=== PATIENT | male | born 1940 | race Caucasian/White ===

== ENCOUNTER 2022-01-24 10:19 | Emergency (ER) | payer MEDICARE, OTHER, SELFPAY ==
[2022-01-24] VITALS (11 sets, daily range): BP systolic 91–127; BP diastolic 53–76; PULSE 69–94; RESP 11–20; TEMP 37.6; O2SAT 91–100; BMI 28.8
--- NOTE | 2022-01-24 11:00 | ED_ITS ---
HPI - Abdominal Pain General: Chief Complaint: Abdominal Pain Stated Complaint: N/V/D Abd Pains with weakness Time Seen by Provider: 01/24/22 10:59 History of Present Illness: Mr. Dang is an 81-year-old gentleman with significant past medical history of melanoma status post completion of therapy currently stable and chronic steroid use who presents to the emergency department due to abdominal pain with diarrhea, nausea, vomiting. Symptom onset was subacute approximately 1 week ago without known specific provoking factor. Patient has had daily episodes of multiple watery bowel movements. Additionally he has noted multiple episodes of watery emesis. No blood reported in either stool or vomit. Symptoms wax and wane to mildly though occur daily and abdominal pain has been constant. Overall the course of symptoms has been worsening has been the worst today. Intensity symptoms is moderate. Of note the patient did run out of his steroids which he typically takes hydrocortisone 20 mg in the morning and 10 mg in the evening approximately 1 week ago. He has been on this for a number of years. He denies lightheadedness or syncope. No other specific changes in health, exacerbating, or alleviating factors identified. Onset (ago): day(s) Pain Consistency: constant Location: Diffuse Severity: moderate Quality: cramping and aching Exacerbating factors: nothing Relieving factors: nothing Associated Symptoms: Reports diarrhea, nausea, poor appetite and vomiting Review of Systems General: Reports: 10 or more systems reviewed and unremarkable except in HPI and below GI: Reports: nausea, vomiting and diarrhea [facility] ED PFSH: Medical History Chronic steroid use History of melanoma Surgical History History of abdominal surgery History of appendectomy Family History Father CAD (coronary artery disease) Social History Smoking and tobacco status: never smoked Physical Exam Const: COMMON NORMALS: alert GENERAL APPEARANCE: cooperative, well developed and ill appearing (Mildly) HENMT: COMMON NORMALS: normocephalic and atraumatic HEAD & SCALP: normoc ephalic and atraumatic Eye: COMMON NORMALS: conjunctivae normal CONJUNCTIVA: Yes conjunctivae normal SCLERA: sclerae normal Neck/C-Spine: COMMON NORMALS: supple GENERAL: Yes trachea midline Resp: COMMON NORMALS: normal respiratory effort and clear to auscultation bilaterally EFFORT & INSPECTION: Yes able to speak in complete sentences AUSCULTATION: clear to auscultation bilaterally Cardio: COMMON NORMALS: regular rate and regular rhythm RATE: regular rate RHYTHM: regular rhythm GI: COMMON NORMALS: Soft to palpation PALPATION: Yes Soft to palpation, Yes Tenderness to palpation present (GI) (Mild generalized), No Guarding due to palpation present (GI) and No Rigid due to palpation PERCUSSION: normal to percussion Extremity: GENERAL: Yes normal exam except as noted and No edema Neuro: COMMON NORMALS: moves all extremities SENSORIUM/ORIENTATION: Yes alert and No Orientation impaired Psych: COMMON NORMALS: mental status grossly normal and Normal thought process present THOUGHT PROCESS: Normal thought process present Course ED course: - Patient was seen and evaluated by me at bedside - Patient placed on cardiac monitors, IV access obtained - Initial evaluation notable for exam as above. - Labs personally interpreted by me. EKG showing sinus rhythm with no STEMI - Fluids, analgesia, and antiemetics given - Labs notable for no leukocytosis, normal hemoglobin. Metabolic panel with evidence of dehydration. - Imaging notable for no acute abnormality identified on CT imaging of abdomen and pelvis - Upon serial reexamination after treatment the patient was improved. Hyd rocortisone IV bolus given. - Based on patient history, evaluation, and testing as interpreted the most likely cause of the patient's condition is unclear, perhaps related to adrenal insufficiency given chronic steroid use and being out of prescription however blood pressure is adequate and there is not significant evidence of adrenal crisis - The results of ED evaluation were discussed with the patient including prescriptions and/or symptomatic cares (if applicable) including appropriate and responsible use, followup plan, and return precautions. The patient verbalized understanding and felt safe for discharge. - Patient discharged in satisfactory condition. Note: Click bubbles or prepopulated hurtado in note writing are used for assistance with data collection and billing and are inherently more limited than narrative and other text portions of this note. Please use narrative for additional clinical history and defer to narrative/free test for any case of contradictory information. If information appears in only free text or click bubble it should be considered present or absent as reported. Please contact note ticket writer for clarifications of clinical information or contradictory information. MDM is a brief summary, contradictory or erroneous seeming information should be clarified and full note should be reviewed. Vital Signs: Vital signs: Vital Signs Temperature 99.7 F H 01/24/22 10:53 Pulse Rate 69 01/24/22 15:00 Respiratory Rate 20 H 01/24/22 15:03 Blood Pressure 123/67 01/24/22 15:00 Pulse Oximetry 92 01/24/22 15:00 MDM - Abdominal Pain Medical Decision Making 81-year-old gentleman presenting with nausea and vomiting as well as generalized symptoms correlating with being out of his prescription for chronic steroids. Dehydration noted on laboratory studies. No acute abnormality on CT scan. Patient improved with symptom treatment and bolused with hydrocortisone IV. Satisfactory for outpatient management with refill prescription and strict return precautions. Medical Records I reviewed the patient's medical records. Lab Data I reviewed the patient's lab results. : 01/24/22 11:16 01/24/22 11:16 Labs/Radiology: Radiology Impressions Abdomen/Pelvis CT 01/24/22 12:06 IMPRESSION: No acute abnormality. Laboratory Results WBC 5.7 10^3/uL (4.0-10.0) 01/24/22 11:16 RBC 4.56 10^6/uL (4.1-5.3) 01/24/22 11:16 Hgb 14.7 g/dL (11.7-16.6) 01/24/22 11:16 Hct 41.6 % (42.0-52.0) L 01/24/22 11:16 MCV 91.2 fl (80-94) 01/24/22 11:16 MCH 32.2 pg (28.0-34.0) 01/24/22 11:16 MCHC 35.3 g/dL (30.0-36.0) 01/24/22 11:16 RDW 12.6 % (12.1-15.1) 01/24/22 11:16 Plt Count 229 10^3/cmm (130-400) 01/24/22 11:16 MPV 9.4 fL (7.4-10.4) 01/24/22 11:16 Neut % (Auto) 65.4 % 01/24/22 11:16 Lymph % (Auto) 17.2 % 01/24/22 11:16 [place] % (Auto) 15.0 % 01/24/22 11:16 Eos % (Auto) 1.6 % 01/24/22 11:16 Baso % (Auto) 0.3 % 01/24/22 11:16 Neut # (Auto) 3.75 10^3/uL (1.8-7.7) 01/24/22 11:16 Lymph # (Auto) 1.0 10^3/uL (0.8-4.8) 01/24/22 11:16 [place] # (Auto) 0.9 10^3/uL (0.2-0.9) 01/24/22 11:16 Eos # (Auto) 0.1 10^3/uL (0.0-0.8) 01/24/22 11:16 Baso # (Auto) 0.0 10^3/uL (0.0-0.1) 01/24/22 11:16 Nucleated RBC % (auto) 0 % 01/24/22 11:16 Nucleated RBCs # 0.0 /100WBC 01/24/22 11:16 Sodium 129 mmol/L (136-145) L 01/24/22 11:16 Potassium 4.3 mmol/L (3.5-5.1) 01/24/22 11:16 Chloride 92 mmol/L (98-107) L 01/24/22 11:16 Carbon Dioxide 24 mmol/L (22-29) 01/24/22 11:16 Anion Gap 17.3 (5-19) 01/24/22 11:16 BUN 8 mg/dL (8-23) 01/24/22 11:16 Creatinine 0.9 mg/dL (0.7-1.2) 01/24/22 11:16 GFR Calculation Not Reportable 01/24/22 11:16 Glucose 113 mg/dL (65-115) 01/24/22 11:16 Calculated Osmolality 267 mOsm/kg (285-295) L 01/24/22 11:16 Lactate 1.3 mmol/L (0.5-2.2) 01/24/22 11:16 Calcium 9.2 mg/dL (8.5-10.5) 01/24/22 11:16 Magnesium 1.8 mg/dL (1.7-2.3) 01/24/22 11:16 Total Bilirubin 0.9 mg/dL (0.15-1.2) 01/24/22 11:16 AST 19 U/L (0-40) 01/24/22 11:16 ALT 13 U/L (0-41) 01/24/22 11:16 Alkaline Phosphatase 73 IU/L (40-130) 01/24/22 11:16 Total Protein 7.3 g/dL (6.6-8.7) 01/24/22 11:16 Albumin 4.2 g/dL (3.5-5.2) 01/24/22 11:16 Globulin 3.1 g/dL (1.3-4.6) 01/24/22 11:16 Lipase 50 U/L (13-60) 01/24/22 11:16 Urine Color Yellow (Yellow) 01/24/22 11:10 Urine Appearance Clear (CLEAR) 01/24/22 11:10 Urine pH 6 (5-7) 01/24/22 11:10 Ur Specific [place] 1.020 (1.005-1.030) 01/24/22 11:10 Urine Protein Neg (Negative) 01/24/22 11:10 Urine Glucose (UA) Norm (Normal) 01/24/22 11:10 Urine Ketones 1+ (Negative) H 01/24/22 11:10 Urine Blood Trace (Negative) H 01/24/22 11:10 Urine Nitrate Negative (Negative) 01/24/22 11:10 Urine Bilirubin 1+ (Negative) H 01/24/22 11:10 Urine Urobilinogen Norm mg/dL (Negative) 01/24/22 11:10 Ur Leukocyte Esterase Negative (Negative) 01/24/22 11:10 Urine RBC 0-4 /hpf (0-2) H 01/24/22 11:10 Urine WBC None /hpf (0-5) 01/24/22 11:10 Ur Squamous Epith Cells None /hpf (0-5) 01/24/22 11:10 Amorphous Sediment Not Reportable 01/24/22 11:10 Urine Bacteria None /hpf (NONE) 01/24/22 11:10 Urine Mucus Trace /hpf 01/24/22 11:10 Discharge Plan Discharge Patient Disposition: Home Clinical Impression: Abdominal pain, Nausea vomiting and diarrhea Condition: Stable Prescriptions: New hydrocortisone 20 mg tablet See Rx Instructions .ROUTE .COMPLEX Qty: 60 0RF Rx Instructions: Take as previously prescribed ondansetron 4 mg tablet,disintegrating 4 mg PO Q8H PRN (Reason: nausea and vomiting) Qty: 15 0RF No Action metoprolol succinate 50 mg tablet extended release 24 hr 50 mg PO DAILY 0RF amlodipine 10 mg tablet 10 mg PO DAILY 0RF pantoprazole 40 mg tablet,delayed release (DR/EC) 40 mg PO DAILY 0RF hydrocortisone 20 mg tablet See Rx Instructions .ROUTE .COMPLEX 0RF Rx Instructions: 20 mg orally in the morning / 10 mg orally in the evening lisinopril 40 mg tablet 40 mg PO DAILY 0RF PreserVision AREDS-2 250-90-40-1 mg capsule 1 tab PO BID 0RF Discharge Orders: Discharge ED (Routine); Ordered 01/24/22 Ordered By: Neel Mcneill Discharge Diet: Usual diet Discharge Activity: Increase activity as tolerated Patient Instructions: Acute Nausea and Vomiting (ED), Acute Diarrhea (ED), Abdominal Pain (ED), Opioid Safety Activity Restrictions/Additional Instructions: Thank you for visiting the emergency department. You were seen and evaluated for abdominal pain, nausea, vomiting, diarrhea. The exact cause of the symptoms is unclear. Laboratory studies did show mild dehydration however no exact other cause was identified on CT imaging or laboratory studies. This may be related to viral syndrome or missing doses of steroids. Please follow-up with your primary care provider and inbound customer service agent. Please return to the emergency department for worsening symptoms or anything else that you are concerned about and feel needs emergency department evaluation. Coding Level of Care Code ED Pattern Puncher for Deidre Art Exam Comprehensive
--- NOTE | 2022-01-24 11:11 | ECG_ITS ---
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 Measurements Intervals [place] Rate: 83 P: 55 ND: 178 QRS: -2 QRSD: 107 T: 55 QT: 379 QTc: 446 Interpretive Statements SINUS RHYTHM INTERPRETATION BASED ON A DEFAULT AGE OF 40 YEARS No previous ECG available for comparison Electronically Signed On 01-25-2022 9:25:02 CDT by Bunny Walton M.D. [id number]
[2022-01-24] MEDS: ondansetron 2 mg/ML SDV 2 mL 4 MG IVP (11:31)
[2022-01-24] MEDS: morphine 4 mg/mL SDV 1 mL IVP ×2 (11:31→15:03)
[2022-01-24 11:41] LABS: Basophils % 0.3 %; Eosinophils # 0.1 10^3/uL (0.0-0.8); Eosinophils % 1.6 %; Hematocrit 41.6 % (42.0-52.0); Hemoglobin 14.7 g/dL (11.7-16.6); Lymphocytes % 17.2 %; Mean Corpuscular HGB Conc 35.3 g/dL (30.0-36.0); Mean Corpuscular Hemoglobin 32.2 pg (28.0-34.0); Mean Corpuscular Volume 91.2 fl (80-94); Mean Platelet Volume 9.4 fL (7.4-10.4); Monocytes # 0.9 10^3/uL (0.2-0.9); Neutrophils # 3.75 10^3/uL (1.8-7.7); Neutrophils % 65.4 %; Nucleated Red Blood Cells % 0 %; Platelet Count 229 10^3/cmm (130-400); Red Blood Count 4.56 10^6/uL (4.1-5.3); Red Cell Distribution Width 12.6 % (12.1-15.1); White Blood Count 5.7 10^3/uL (4.0-10.0)
[2022-01-24 12:03] LABS: Alanine Aminotransferase 13 U/L (0-41); Albumin Level 4.2 g/dL (3.5-5.2); Alkaline Phosphatase 73 IU/L (40-130); Anion Gap 17.3 (5-19); Aspartate Amino Transferase 19 U/L (0-40); Blood Urea Nitrogen 8 mg/dL (8-23); Calcium 9.2 mg/dL (8.5-10.5); Carbon Dioxide 24 mmol/L (22-29); Chloride 92 mmol/L (98-107); Globulin 3.1 g/dL (1.3-4.6); Glucose 113 mg/dL (65-115); Lactate (Lactic Acid level) 1.3 mmol/L (0.5-2.2); Lipase 50 U/L (13-60); Magnesium 1.8 mg/dL (1.7-2.3); Osmolality Calculated 267 mOsm/kg (285-295); Potassium 4.3 mmol/L (3.5-5.1); Sodium 129 mmol/L (136-145); Total Bilirubin 0.9 mg/dL (0.15-1.2); Total Protein 7.3 g/dL (6.6-8.7)
--- NOTE | 2022-01-24 12:06 | CTR_ITS ---
PROCEDURE INFORMATION: Exam: CT Abdomen And Pelvis With Contrast Exam date and time: 01/24/2022 1:08 PM Age: 81 years old Clinical indication: Nausea and vomiting; Abdominal pain; Additional info: N/v/d, generalized abd pain TECHNIQUE: Imaging protocol: Computed tomography of the abdomen and pelvis with contrast. Radiation optimization: All CT scans at this facility use at least one of these dose optimization techniques: automated exposure control; mA and/or kV adjustment per patient size (includes targeted exams where dose is matched to clinical indication); or iterative reconstruction. Contrast material: OMNI 300; Contrast volume: 95 ml; Contrast route: INTRAVENOUS (IV); COMPARISON: CT abdomen pelvis w con* [id number] 01/04/2019 2:04 AM RADIATION DOSE METRICS: Total DLP (mGy-cm): 1604.48 FINDINGS: Lungs: There is bibasilar fibrosis. There is basilar bronchiectasis greater on the left side. Liver: Normal. No mass. Gallbladder and bile ducts: Cholecystectomy. Normal bile ducts. Pancreas: Normal. No ductal dilation. Spleen: Normal. No splenomegaly. Adrenal glands: Normal. No mass. Kidneys and ureters: Normal. No hydronephrosis. Stomach and bowel: Right hemicolectomy. There is no significant bowel dilatation or evidence of bowel obstruction. Appendix: No evidence of appendicitis. Intraperitoneal space: Unremarkable. No free air. No significant fluid collection. Vasculature: There is mild calcification of the aorta. There is no abdominal aortic aneurysm. Lymph nodes: Unremarkable. No enlarged lymph nodes. Urinary bladder: Unremarkable as visualized. Reproductive: Unremarkable as visualized. Bones/joints: Chronic degenerative changes are present in the spine. No acute bony abnormality. Soft tissues: Unremarkable. CT/CT abdomen pelvis w con* [id number] IMPRESSION: No acute abnormality.
[2022-01-24 12:09] LABS: Urine Appearance Clear (CLEAR); Urine Color Yellow (Yellow); pH Urine 6 (5-7)
[2022-01-24 12:10] LABS: Add Urine Microscopic? YES; Bilirubin Urine 1+ (Negative); Blood Urine Trace (Negative); Glucose Urine UA Norm (Normal); Ketones Urine 1+ (Negative); Leukocyte Esterase Urine Negative (Negative); Nitrate Urine Negative (Negative); Protein Urine Neg (Negative); Urobilinogen Urine Norm (Negative)
[2022-01-24 12:13] LABS: RBC Urine 0-4 /hpf (0-2)
[2022-01-24 12:14] LABS: Add Urine Culture? No; Mucus Urine TRACE /hpf
[2022-01-24] MEDS: iohexol 300 mg/mL 100 mL Btl IV (13:12)
[2022-01-24] MEDS: sodium chloride 0.9% 1,000 ML 999 ML IV (13:31)
[2022-01-24] MEDS: hydrocortisone 100 mg/2 mL SDV IVP (14:27)
== END 2022-01-24 15:24 | disposition home or self-care (01) ==
PROVIDERS: Emergency Provider Emergency Medicine
DX: R10.9 Unspecified abdominal pain (principal); R53.1 Weakness; R11.2 Nausea with vomiting, unspecified; R19.7 Diarrhea, unspecified; T38.0X6A Underdosing of glucocorticoids and synthetic analogues, initial encounter; E86.0 Dehydration; Z79.52 Long term (current) use of systemic steroids; Z85.820 Personal history of malignant melanoma of skin
CPT/HCPCS: 74177; 80053; 81001; 83605; 83690; 83735; 85025; 93005; 96361; 96374; 96375; 96376; 99284; J1720; J2270; J2405; J7030; Q9967

== ENCOUNTER 2023-02-16 09:01 | Oncology outpatient (recurring) (ONCR) | payer MEDICARE, OTHER, SELFPAY ==
--- NOTE | 2023-02-16 10:28 | N.ONRAD NP_ITS ---
Radiation Oncology Consultation Patient Name: David Dang Date of : 1940 Date of Service: 02/16/2023 Attending Physician: Nader Aponte M.D. David Dang was seen for consultation this morning for evaluation regarding a previously diagnosed prostate cancer. 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 Radiotherapy to T11-L5 was delivered in September of 2017. He was prescribed Opdivo between the dates of September 2017 to January 2018. In consideration of continued progression of skeletal disease, Opdivo was discontinued and Yervoy was prescribed. 4 cycles were administered through April 2018 followed by Opdivo maintenance. Progressive disease was identified in September 2018. A second course of Yervoy was instituted but was discontinued following 3 cycles on account of adverse events. Palliative radiotherapy was prescribed to the fourth thoracic vertebral body and left acetabulum completing in November 2018. Restaging PET scan in 2020 demonstrated FDG activity within the prostate gland. A prostate biopsy performed on January 09, 2021 diagnosed an adenocarcinoma with a Jennings score of 4+4 (Grade Group 4) involving 40% of the core from the right mid-gland and 70% of submitted tissue within the right base. A Pylarify scan (independently reviewed in [facility]) obtained on November 30, 2022 described a single focus of increased tracer at the base of the posterior central zone the prostate gland (SUV 4.6) and metabolic activity within a 5 mm right external iliac lymph node (SUV 4.6). He received the first cycle of ADT (Eligard) on February 08, 2023. I discussed with Mr. Dang the [place] [employer] on Cancer staging and the patient's clinical stage IIIA (T1cN0) high-risk prostate cancer. I also reviewed The National Comprehensive Cancer Network Guidelines recommending androgen deprivation therapy and external beam radiotherapy with or without brachytherapy. These recommendations were based upon several trials (RTOG 9202, EORTC 72088, and DART/GICOR). The EORTC study demonstrated superior survival with long-term ADT. Subgroup analyses of the RTOG and DART/GICOR trials confirmed an overall survival advantage in high-risk patients. I would endorse a 7/2-week course of radiotherapy which will be implemented following neoadjuvant hormonal therapy. A planning CT scan with contrast will be acquired prior to implementation of radiation treatment to delineate the clinical target volumes. I reviewed the potential toxicities of pelvic radiotherapy. The patient has verbalized understanding would like to proceed as recommended. The patient's medical treatment plan was discussed with Juli Taylor M.D. Signed by: Dr. Nader Aponte 02/16/2023 10:26:43 AM
== END 2023-02-19 23:59 | disposition home or self-care (01) ==
PROVIDERS: PCP Internal Medicine; Referring Provider Internal Medicine Hematology & Oncology; Visit Provider Radiology Radiation Oncology
DX: C61 Malignant neoplasm of prostate (principal); C79.2 Secondary malignant neoplasm of skin; C79.51 Secondary malignant neoplasm of bone; C77.8 Secondary and unspecified malignant neoplasm of lymph nodes of multiple regions; Z79.818 Long term (current) use of other agents affecting estrogen receptors and estrogen levels; Z92.25 Personal history of immunosuppression therapy
CPT/HCPCS: 99205

== ENCOUNTER 2023-03-24 07:54 | Oncology outpatient (recurring) (ONCR) | payer MEDICARE, OTHER, SELFPAY ==
[2023-03-24 08:04] VITALS: BMI 31.0
[2023-03-24 08:05] VITALS: BP 164/82; PULSE 81; RESP 16; TEMP 36.9; O2SAT 97
[2023-03-24 08:15] LABS: Basophils % 0.5 %; Eosinophils # 0.2 10^3/uL (0.0-0.8); Eosinophils % 2.8 %; Hematocrit 42.1 % (42.0-52.0); Hemoglobin 14.5 g/dL (11.7-16.6); Lymphocytes # 1.4 10^3/uL (0.8-4.8); Lymphocytes % 21.4 %; Mean Corpuscular HGB Conc 34.4 g/dL (30.0-36.0); Mean Corpuscular Hemoglobin 31.9 pg (28.0-34.0); Mean Corpuscular Volume 92.5 fl (80-94); Mean Platelet Volume 9.4 fL (7.4-10.4); Monocytes # 0.7 10^3/uL (0.2-0.9); Monocytes % 11.4 %; Neutrophils # 4.09 10^3/uL (1.8-7.7); Neutrophils % 63.7 %; Nucleated Red Blood Cells % 0 %; Platelet Count 202 10^3/cmm (130-400); Red Blood Count 4.55 10^6/uL (4.1-5.3); Red Cell Distribution Width 13.3 % (12.1-15.1); White Blood Count 6.4 10^3/uL (4.0-10.0)
[2023-03-24 08:36] LABS: Alanine Aminotransferase 14 U/L (0-41); Alkaline Phosphatase 93 U/L (40-130); Anion Gap 15.4 (5-19); Aspartate Amino Transferase 23 U/L (0-40); Blood Urea Nitrogen 17 mg/dL (8-23); Calcium 8.8 mg/dL (8.5-10.5); Carbon Dioxide 24 mmol/L (22-29); Chloride 103 mmol/L (98-107); Globulin 2.6 g/dL (1.3-4.6); Glucose 97 mg/dL (65-115); Osmolality Calculated 289 mOsm/kg (285-295); Potassium 3.4 mmol/L (3.5-5.1); Sodium 139 mmol/L (136-145); Total Bilirubin 0.7 mg/dL (0.15-1.2); Total Protein 6.6 g/dL (6.6-8.7)
[2023-03-30] MEDS: iohexol 350 mg/mL 100 mL Btl IV (08:21)
== END 2023-03-24 23:59 | disposition home or self-care (01) ==
PROVIDERS: PCP Internal Medicine; Referring Provider Internal Medicine Hematology & Oncology; Visit Provider Radiology Radiation Oncology
DX: C61 Malignant neoplasm of prostate (principal)
CPT/HCPCS: 36415; 77263; 77300; 77301; 77334; 77338; 77370; 77470; 80053; 85025; Q9967

== ENCOUNTER 2023-04-22 08:15 | Oncology outpatient (recurring) (ONCR) | payer MEDICARE, OTHER, SELFPAY ==
--- NOTE | 2023-04-06 09:51 | ONCRAD TMN_ITS ---
Radiation Oncology Weekly Treatment Management Patient: Laurence Lang MR#: [id number] : 1940> Attending Physician: Nathaniel Durbin Date of Service: 04/06/2023 Referring Physician(s) : Dr. 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 ID: [id number], Energy: 15X, Dose/Fx (cGy): 180, #Fx: , Dose Correction (cGy): 0, Total Dose (cGy): 180, Start Date: 04/06/2023, Elapsed Days: 0 Reason for visit: The patient is being seen today as part of their regularly scheduled weekly on treatment visits to assess for acute toxicities from radiotherapy. He has 1 x nocturia and good urinary flow. Not on Flomax. Began ADT which is well tolerated with no toxicity. Review of Systems: Vital Signs: Performed on 04/06/2023 8:51 AM BMI - 30.714 kg/m2 (high), Height - 68 in, Weight - 202.0 lbs, Temperature - 97.0 f, Pulse - 76 /min, Respiration - 18 /min, O2 Sat - 99 %, Pain - 0, Fatigue - 0 and BP - 155/ 76 mm(hg)(high/). Physical Exam: Imaging: Radiation therapy imaging related to accurate target localization (i.e. KV, MV and CBCT) was reviewed. Appropriate changes, if any, were made to ensure treatment accuracy. Plan: Good tolerance of first treatment. Discussed expectations and potential toxicities and their treatment. Signed by: Nathaniel Durbin 04/06/2023 9:48:35 AM
--- NOTE | 2023-04-13 09:24 | ONCRAD TMN_ITS ---
Radiation Oncology Weekly Treatment Management Patient: Laurence Lang MR#: [id number] : 1940> Attending Physician: Nathaniel Durbin Date of Service: 04/13/2023 Referring Physician(s) : Dr. 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 ID: [id number], Energy: 15X, Dose/Fx (cGy): 180, #Fx: , Dose Correction (cGy): 0, Total Dose (cGy): 1,080, start Date: 04/06/2023,Elapsed Days: 7 Reason for visit: The patient is being seen today as part of their regularly scheduled weekly on treatment visits to assess for acute toxicities from radiotherapy. Review of Systems: Stable 1 x nocturia. No other sxs. Active with daily activity. Vital Signs: Performed on 04/13/2023 8:51 AM BMI - 30.988 kg/m2 (high), Height - 68 in, Weight - 203.8 lbs, Temperature - 97.0 f, Pulse - 82 /min, Respiration - 16 /min, O2 Sat - 97 %, Pain - 0, Fatigue - 5 and BP - 143/ 81 mm(hg)(high/). Physical Exam: Imaging: Radiation therapy imaging related to accurate target localization (i.e. KV, MV and CBCT) was reviewed. Appropriate changes, if any, were made to ensure treatment accuracy. Plan: Good tolerance of treatment. Continue as planned. Telemedicine Consent Patient seen today via Telemedicine by agreement and consent of patient. Telemedicine technology used during the visit include audio and, as available, review of images. This patient encounter is appropriate and reasonable under the circumstances given the patient???s particular presentation at this time. The patient has been advised of the potential risks and limitations of this mode of treatment (including but not limited to the absence of in-person examination) and has agreed to be treated in a remote fashion in spite of them. Any and all of the patient???s/patient???s family???s questions on this issue have been answered and I have made no promises or guarantees to the patient. The patient has also been advised to contact this office for worsening conditions or problems, and seek emergency medical treatment and/or call 911 if the patient deems either necessary. Signed by: Nathaniel Durbin 04/13/2023 9:22:20 AM
--- NOTE | 2023-04-20 11:32 | ONCRAD TMN_ITS ---
Radiation Oncology Weekly Treatment Management Patient: David Dang> MR#: [id number] : 1940> Attending Physician: Nathaniel Durbin Date of Service: 04/20/2023 Referring Physician(s) : Dr. 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 ID: [id number], Energy: 15X, Dose/Fx (cGy): 180, #Fx: , Dose Correction (cGy): 0, Total Dose (cGy): 1,980, Start Date: 04/06/2023, Elapsed Days: 14 Reason for visit: The patient is being seen today as part of their regularly scheduled weekly on treatment visits to assess for acute toxicities from radiotherapy. Review of Systems: No current toxicities from treatment. Stable 1 x nocturia, No other urinary sxs. Stable energy level. No HF or sweats. He remains active. Vital Signs: Performed on 04/20/2023 8:25 AM BMI - 30.441 kg/m2 (high), Height - 68 in, Weight - 200.2 lbs, Temperature - 96.9 f, Pulse - 70 /min, Respiration - 16 /min, O2 Sat - 96 %, Pain - 0, Fatigue - 0 and BP - 147/ 78 mm(hg)(high/). Physical Exam: Imaging: Radiation therapy imaging related to accurate target localization (i.e. KV, MV and CBCT) was reviewed. Appropriate changes, if any, were made to ensure treatment accuracy. Plan: Good tolerance of treatment. Continue as planned. Telemedicine Consent Patient seen today via Telemedicine by agreement and consent of patient. Telemedicine technology used during the visit include audio and, as available, review of images. This patient encounter is appropriate and reasonable under the circumstances given the patient???s particular presentation at this time. The patient has been advised of the potential risks and limitations of this mode of treatment (including but not limited to the absence of in-person examination) and has agreed to be treated in a remote fashion in spite of them. Any and all of the patient???s/patient???s family???s questions on this issue have been answered and I have made no promises or guarantees to the patient. The patient has also been advised to contact this office for worsening conditions or problems, and seek emergency medical treatment and/or call 911 if the patient deems either necessary. igned by: Nathaniel Durbin 04/20/2023 11:30:03 AM
== END 2023-04-22 23:59 | disposition home or self-care (01) ==
PROVIDERS: PCP Internal Medicine; Visit Provider Radiology Radiation Oncology
DX: Z51.0 Encounter for antineoplastic radiation therapy (principal); C61 Malignant neoplasm of prostate; C79.51 Secondary malignant neoplasm of bone
CPT/HCPCS: 77336; 77385; 99024

== ENCOUNTER 2023-05-12 08:13 | Oncology outpatient (recurring) (ONCR) | payer MEDICARE, OTHER, SELFPAY ==
--- NOTE | 2023-04-27 14:47 | ONCRAD TMN_ITS ---
Radiation Oncology Weekly Treatment Management Patient: David Dang MR#: [id number] : 1940> Attending Physician: Nile Figueroa Date of Service: 04/27/2023 Referring Physician(s) : Dr. 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 ID: [id number], Energy: 15X, Dose/Fx (cGy): 180, #Fx: , Dose Correction (cGy): 0, Total Dose (cGy): 2,700, Start Date: 04/06/2023, Elapsed Days: 21 Reason for visit: The patient is being seen today as part of their regularly scheduled weekly on treatment visits to assess for acute toxicities from radiotherapy. Review of Systems: Mr. Dang is a gentleman experiencing extended survival with metastatic melanoma who has a high-grade, Baljit 4+4 prostate cancer being treated with ADT and external beam radiation. He has no complaints at all. His urinary pattern is essentially normal. Bowel movements are normal. No bone pain. Vital Signs: Performed on 04/27/2023 8:30 AM BMI - 30.836 kg/m2 (high), Height - 68 in, Weight - 202.8 lbs, Temperature - 98.4 f, Pulse - 84 /min, Respiration - 18 /min, O2 Sat - 97 %, Pain - 0, Fatigue - 0 and BP - 153/ 85 mm(hg)(high/). Physical Exam: Alert, oriented, no distress. No cervical or supraclavicular lymphadenopathy. Lungs clear to auscultation with no rales, rhonchi, or wheezes. Heart rhythm regular with no murmur or gallop. Imaging: Radiation therapy imaging related to accurate target localization (i.e. KV, MV and CBCT) was reviewed. Appropriate changes, if any, were made to ensure treatment accuracy. Plan: Continue treatment per plan. The patient had no questions. Signed by: Nile Figueroa 04/27/2023 2:45:27 PM
--- NOTE | 2023-05-05 09:46 | ONCRAD TMN_ITS ---
Radiation Oncology Weekly Treatment Management Patient: David Dang MR#: [id number] : 1940 Attending Physician: Isai Fish Date of Service: 05/05/2023 Referring Physician(s) : Dr. 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 ID: [id number], Energy: 15X, Dose/Fx (cGy): 180, #Fx: , Dose Correction (cGy): 0, Total Dose (cGy): 3,780, Start Date: 04/06/2023, Elapsed Days: Reason for visit: The patient is being seen today as part of their regularly scheduled weekly on treatment visits to assess for acute toxicities from radiotherapy. 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 He has no complaints of urinary hesitancy, urgency, or frequency. He has normal bowel movements. He denies bone pain. Vital Signs: Performed on 05/05/2023 8:49 AM BMI - 30.593 kg/m2 (high), Height - 68 in, Weight - 201.2 lbs, Temperature - 96.5 f, Pulse - 93 /min, Respiration - 18 /min, O2 Sat - 97 %, Pain - 0, Fatigue - 0 and BP - 150/ 85 mm(hg)(high/). Physical Exam: Patient is alert and oriented. Speech intact. Skin in the treatment area is intact without erythema or desquamation. Patient amatory without assistance. Imaging: Radiation therapy imaging related to accurate target localization (i.e. KV, MV and CBCT) was reviewed. Appropriate changes, if any, were made to ensure treatment accuracy. Plan: Patient is tolerating treatment well. Plan to continue prescribed treatment. Signed by: Isai Fish 05/05/2023 9:45:08 AM
--- NOTE | 2023-05-11 09:11 | ONCRAD TMN_ITS ---
Radiation Oncology Weekly Treatment Management Patient: David Dang MR#: [id number] : 1940> Attending Physician: Nathaniel Durbin Date of Service: 05/11/2023 Referring Physician(s) : Dr. 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 ID: [id number], Energy: 15X, Dose/Fx (cGy): 180, #Fx: 25 / 25, Dose Correction (cGy): 0, Total Dose (cGy): 4,500, Start Date: 04/06/2023, Elapsed Days: 35 Reason for visit: The patient is being seen today as part of their regularly scheduled weekly on treatment visits to assess for acute toxicities from radiotherapy. Review of Systems: Doing well. Urination stable with 1 to 2 x nocturia. Good flow. No pain. Bowels ok. Active at work and home. Vital Signs: Performed on 05/11/2023 8:37 AM BMI - 30.623 kg/m2 (high), Height - 68 in, Weight - 201.4 lbs, Pulse - 79 /min, Respiration - 16 /min, O2 Sat - 98 %, Pain - 0, Fatigue - 2 and BP - 138/ 70 mm(hg). Physical Exam: Imaging: Radiation therapy imaging related to accurate target localization (i.e. KV, MV and CBCT) was reviewed. Appropriate changes, if any, were made to ensure treatment accuracy. Plan: Good tolerance of treatment. Continue as planned. Signed by: Nathaniel Durbin 05/11/2023 9:09:50 AM
== END 2023-05-12 23:59 | disposition home or self-care (01) ==
PROVIDERS: PCP Internal Medicine; Visit Provider Radiology Radiation Oncology
DX: Z51.0 Encounter for antineoplastic radiation therapy (principal); C61 Malignant neoplasm of prostate; C79.51 Secondary malignant neoplasm of bone
CPT/HCPCS: 77336; 77385; 99024

== ENCOUNTER 2023-05-21 08:15 | Oncology outpatient (recurring) (ONCR) | payer MEDICARE, OTHER, SELFPAY ==
--- NOTE | 2023-05-18 13:46 | ONCRAD TMN_ITS ---
Radiation Oncology Weekly Treatment Management Patient: Laurence Lang MR#: [id number] : 1940> Attending Physician: Nathaniel Durbin Date of Service: 05/18/2023 Referring Physician(s) : Dr. 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 ID: [id number], Energy: 15X, Dose/Fx (cGy): 180, #Fx: 25 / 25, Dose Correction (cGy): 0, Total Dose (cGy): 4,500, Start Date: 04/06/2023, End Date: 05/11/2023, Elapsed Days: 35 Treatment Site: Prost Boost, Ref. ID: [id number], Energy: 15X, Dose/Fx (cGy): 180, #Fx: 5 / 12, Dose Correction (cGy): 0, Total Dose (cGy): 900, Start Date: 05/12/2023, End Date: 05/18/2023, Elapsed Days: 6 Reason for visit: The patient is being seen today as part of their regularly scheduled weekly on treatment visits to assess for acute toxicities from radiotherapy. Review of Systems: He has no complaints. Stable 1 x nocturia. Good flow. Bowels ok. Vital Signs: Performed on 05/18/2023 8:45 AM BMI - 30.805 kg/m2 (high), Height - 68 in, Weight - 202.6 lbs, Temperature - 97.1 f, Pulse - 78 /min, Respiration - 18 /min, O2 Sat - 99 %, Pain - 0, Fatigue - 0 and BP - 147/ 74 mm(hg)(high/). Physical Exam: Imaging: Radiation therapy imaging related to accurate target localization (i.e. KV, MV and CBCT) was reviewed. Appropriate changes, if any, were made to ensure treatment accuracy. Plan: Good tolerance of treatment. Continue as planned. Telemedicine Consent Patient seen today via Telemedicine by agreement and consent of patient. Telemedicine technology used during the visit include audio and, as available, review of images. This patient encounter is appropriate and reasonable under the circumstances given the patient???s particular presentation at this time. The patient has been advised of the potential risks and limitations of this mode of treatment (including but not limited to the absence of in-person examination) and has agreed to be treated in a remote fashion in spite of them. Any and all of the patient???s/patient???s family???s questions on this issue have been answered and I have made no promises or guarantees to the patient. The patient has also been advised to contact this office for worsening conditions or problems, and seek emergency medical treatment and/or call 911 if the patient deems either necessary. Signed by: Nathaniel Durbin 05/18/2023 1:45:43 PM
== END 2023-05-22 23:59 | disposition home or self-care (01) ==
PROVIDERS: PCP Internal Medicine; Visit Provider Radiology Radiation Oncology
DX: Z51.0 Encounter for antineoplastic radiation therapy (principal); C79.51 Secondary malignant neoplasm of bone; C61 Malignant neoplasm of prostate
CPT/HCPCS: 77014; 77336; 77385; 99024

== ENCOUNTER 2023-05-27 08:14 | Oncology outpatient (recurring) (ONCR) | payer MEDICARE, OTHER, SELFPAY ==
--- NOTE | 2023-05-25 09:41 | ONCRAD TMN_ITS ---
Radiation Oncology Weekly Treatment Management Patient: Laurence Lang MR#: [id number] : 1940> Attending Physician: Nathaniel Durbin Date of Service: 05/25/2023 Referring Physician(s) : Dr. Juli Taylor Diagnosis: C79.51 - Secondary malignant neoplasm of bone, Diagnosed 09/26/2018 (Active) C43.9 - Malignant melanoma of skin, unspecified, Diagnosed 11/11/2016 (Active) Radiotherapy to date: Course: [id number], Treatment Site: Prost Initial, Ref. ID: [id number], Energy: 15X, Dose/Fx (cGy): 180, #Fx: 25 / 25, Dose Correction (cGy): 0, Total Dose (cGy): 4,500, Start Date: 04/06/2023, End Date: 05/11/2023, Elapsed Days: 35 Treatment Site: Prost Boost, Ref. ID: [id number], Energy: 15X, Dose/Fx (cGy): 180, #Fx: 10 / 12, Dose Correction (cGy): 0, Total Dose (cGy): 1,800, Start Date: 05/12/2023, Elapsed Days: 13 Reason for visit: The patient is being seen today as part of their regularly scheduled weekly on treatment visits to assess for acute toxicities from radiotherapy. Review of Systems: No interval sxs. No nocturia. No dysuria. Bowels ok. Vital Signs: Performed on 05/25/2023 8:57 AM BMI - 30.866 kg/m2 (high), Height - 68 in, Weight - 203 lbs, Temperature - 96.4 f, Pulse - 81 /min, Respiration - 16 /min, O2 Sat - 99 %, Pain - 0, Fatigue - 0 and BP - 157/ 82 mm(hg)(high/). Physical Exam: Imaging: Radiation therapy imaging related to accurate target localization (i.e. KV, MV and CBCT) was reviewed. Appropriate changes, if any, were made to ensure treatment accuracy. Plan: Good tolerance of treatment. Continue as planned. Signed by: Nathaniel Durbin 05/25/2023 9:43:42 AM
--- NOTE | 2023-05-31 21:44 | N.ONRD TS_ITS ---
Radiation Oncology Treatment Summary Patient: Laurence Hernandez MR#: [id number] : 1940 Age: 82 Sex: Male Dictated by: Nathaniel Durbin Date of Service: 05/27/2023 Referring Physician(s) : Dr. Juli Taylor Diagnosis: C79.51 - Secondary malignant neoplasm of bone, Diagnosed 09/26/2018 (Active) C43.9 - Malignant melanoma of skin, unspecified, Diagnosed 11/11/2016 (Active) Radiotherapy to Date: Course: LT Hip T Spine, Treatment Site: Hip GTV30, Ref. ID: [id number], Energy: 15X, Dose/Fx (cGy): 300, #Fx: 10 / 10, Dose Correction (cGy): 0, Total Dose (cGy): 3,000, Start Date: 11/15/2018, End Date: 11/28/2018, Elapsed Days: 13 Course: LT Hip T Spine, Treatment Site: SPINE GTV30, Ref. ID: [id number], Energy: 15X, Dose/Fx (cGy): 300, #Fx: 10 / 10, Dose Correction (cGy): 0, Total Dose (cGy): 3,000, Start Date: 11/15/2018, End Date: 11/28/2018, Elapsed Days: 13 Course: [id number], Treatment Site: Prost Initial, Ref. ID: [id number], Energy: 15X, Dose/Fx (cGy): 180, #Fx: 25 / 25, Dose Correction (cGy): 0, Total Dose (cGy): 4,500, Start Date: 04/06/2023, End Date: 05/11/2023, Elapsed Days: 35 Course: [id number], Treatment Site: Prost Boost, Ref. ID: [id number], Energy: 15X, Dose/Fx (cGy): 180, #Fx: 12 / 12, Dose Correction (cGy): 0, Total Dose (cGy): 2,160, Start Date: 05/12/2023, End Date: 05/27/2023, Elapsed Days: 15 Clinical Summary: The patient tolerated RT well. He had no nocturia, dysuria or bowel sxs while on treatment. Plan: End of treatment today. Follow up in one month. Signed by: Nathaniel Durbin>05/31/2023 9:43:13 PM <<Signature on File>>
== END 2023-06-22 23:59 | disposition home or self-care (01) ==
PROVIDERS: PCP Internal Medicine; Visit Provider Radiology Radiation Oncology
DX: C79.51 Secondary malignant neoplasm of bone (principal); Z51.0 Encounter for antineoplastic radiation therapy; C61 Malignant neoplasm of prostate
CPT/HCPCS: 77336; 77385; 99024

== ENCOUNTER 2024-07-13 10:23 | Emergency (ER) | payer MEDICARE, OTHER, SELFPAY ==
[2024-07-13] VITALS (24 sets, daily range): BP systolic 109–184; BP diastolic 67–97; PULSE 81–116; RESP 16–43; TEMP 36.7; O2SAT 90–100
--- NOTE | 2024-07-13 10:27 | ECG_ITS ---
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 Measurements Intervals [place] Rate: 101 P: 57 KS: 162 QRS: 238 QRSD: 100 T: 52 QT: 373 QTc: 486 Interpretive Statements SINUS TACHYCARDIA WITH OCCASIONAL SUPRAVENTRICULAR PREMATURE COMPLEXES INDETERMINATE AXIS INCOMPLETE RIGHT BUNDLE BRANCH BLOCK [90+ ms QRS DURATION, TERMINAL R IN V1/V2, 40+ ms S IN I/aVL/V4/V5/V6] Compared to ECG 01/24/2022 11:21:35 Indeterminate axis now present Incomplete right bundle-branch block now present Sinus rhythm no longer present Electronically Signed On 07-15-2024 10:29:58 [employer] CORD by Robert Solis M.D. [email or web address]
--- NOTE | 2024-07-13 10:41 | XR_ITS ---
WS: [id number] Exam: XR chest 1V portable [id number] Date/Time of Exam: 07/13/2024 10:48 AM Reason For Exam: Chest pain Comparison 01/04/2019. The lungs are clear and fully expanded. Normal cardiomediastinal silhouette. Bony structures are unre markable. Anchoring screw in the RIGHT humeral head. XR/XR chest 1V portable [id number] IMPRESSION: 1. No acute process noted.
--- NOTE | 2024-07-13 10:42 | W.ED.CHESTPA ---
HPI - Chest Pain General: Chief Complaint: Chest Pain Stated Complaint: Chest pain Time Seen by Provider: 07/13/24 10:38 History of Present Illness: 83-year-old man with a history of hypertension and melanoma who presents to the emergency room after having had an episode of chest pain about 30 minutes ago. He said he had about a 4-minute episode of sharp pain in his low central sternal area. No new lower extremity swelling. No nausea or vomiting. No fevers. No cough. He is not short of breath. He no longer has any chest pain. No altered mental status. No focal motor deficits. No abdominal pain. Related Data Home Medications Medication Instructions Recorded Confirmed amlodipine 10 mg tablet 10 mg PO DAILY 01/24/22 07/13/24 hydrocortisone 20 mg tablet See Rx Instructions .Route .COMPLEX 01/24/22 07/13/24 lisinopril 40 mg tablet 40 mg PO DAILY 01/24/22 07/13/24 metoprolol succinate 50 mg 50 mg PO DAILY 01/24/22 07/13/24 tablet,extended release 24 hr pantoprazole 40 mg tablet,delayed 40 mg PO DAILY 01/24/22 07/13/24 release vit C 250 mg-vit E 90 mg-zinc 40 1 tab PO BID 01/24/22 07/13/24 mg-copper 1 [id number] capsule (PreserVision AREDS-2) fludrocortisone 0.1 mg tablet 1 mg PO DAILY 07/13/24 07/13/24 potassium chloride 20 mEq 20 meq PO DAILY 07/13/24 07/13/24 tablet,extended release(part/cryst) Allergies Allergy/AdvReac Type Severity Reaction Status Date / Time No Known Allergies Allergy Unverified 01/24/22 13:40 Review of Systems Narrative: Constitutional symptoms: Negative except as documented in HPI. Skin symptoms: Negative except as documented in HPI. Eye symptoms: Negative except as documented in HPI. ENMT symptoms: Negative except as documented in HPI. Respiratory symptoms: Negative except as documented in HPI. Cardiovascular symptoms: Negative except as documented in HPI. Gastrointestinal symptoms: Negative except as documented in HPI. Genitourinary symptoms: Negative except as documented in HPI. Musculoskeletal symptoms: Negative except as documented in HPI. Neurologic symptoms: Negative except as documented in HPI. Psychiatric symptoms: Negative except as documented in HPI. Endocrine symptoms: Negative except as documented in HPI. [facility] ED PFSH: Medical History Chronic steroid use History of melanoma Surgical History History of abdominal surgery History of appendectomy Family History Father CAD (coronary artery disease) Social History Smoking and tobacco/nicotine status: never used tobacco/nicotine Physical Exam Narrative: EXAM NARRATIVE: General: Alert, no acute distress. Skin: Warm, dry. Head: Normocephalic, atraumatic. Neck: Supple, trachea midline. Eye: Extraocular movements are intact. Ears, nose, mouth and throat: mucosa moist. Cardiovascular: Regular, Normal peripheral perfusion. Respiratory: Lungs are clear to auscultation, respirations are non-labored, breath sounds are equal, Symmetrical chest wall expansion. Gastrointestinal: Soft, Nontender, Non distended Musculoskeletal: Normal ROM, no deformity. Neurological: Alert and oriented, No focal neurological deficit observed. Psychiatric: Cooperative, appropriate mood & affect. Course Vital Signs: Vital signs: Vital Signs Temperature 98.0 F 07/13/24 10:25 Pulse Rate 83 07/13/24 12:48 Respiratory Rate 22 H 07/13/24 12:10 Blood Pressure 173/86 07/13/24 12:48 Pulse Oximetry 95 07/13/24 12:15 Oxygen Delivery Me thod Room Air 07/13/24 10:25 MDM - Chest Pain Medical Decision Making Differential diagnosis for patient with chest pain includes but is not limited to and based on the above HPI, review of systems and physical exam: Pneumonia. unstable angina. angina. Acute coronary syndrome / MS. Pulmonary embolism. Costochondritis / musculoskeletal. Pleurisy. Pericarditis. Esophageal spasm. Pancreatis. Cholecystitis. Orders placed to evaluate differential diagnosis based on the above differential, HPI and physical exam EKG: Time 1027. Rate 101. Sinus tachycardia, No ST-T changes, no ectopy, incomplete right bundle branch block, This was reviewed and interpreted by myself the ER physician at 10:30 AM. Chest x-ray: No acute process. No infiltrate. No pneumothorax. This was reviewed and interpreted by myself the emergency room physician. I also reviewed the radiology report. CTA of the chest with PE protocol: No pulmonary embolism. Other findings are listed in the radiologist report. This was reviewed and interpreted by myself the emergency room physician. I also reviewed the radiology report. Lab Review: Laboratory results were reviewed and interpreted by myself the emergency room physician. Lab work is unremarkable other than an elevated D-dimer. A CT scan was ordered secondary. The D-dimer was ordered because the patient has a history of melanoma and pulmonary embolism is in my differential. I reviewed the patient's medical record. Reexamination: Patient remained stable. No increased work of breathing. No altered mental status. No focal motor deficits. Assessment and plan: Noncardiac chest pain - Discharged home - Discussed plan with patient. Answered any questions. - Evaluation and treatment of this problem were appropriate in the emergency setting. Lab Data 07/13/24 10:48 07/13/24 10:48 Radiology Impressions Chest X-Ray 07/13/24 10:41 IMPRESSION: 1. No acute process noted. Chest CTA 07/13/24 11:36 IMPRESSION: 1. No pulmonary embolus detected though ability to evaluate for very peripheral pulmonary embolus is limited by artifact, particularly in the lower lobes. 2. Atherosclerotic disease aorta. Dilated aortic root. Negative for dissection 3. Patchy atelectasis and infiltrate left upper lobe. Bibasilar atelectasis. 4. Bronchial wall thickening particularly in the lower lobes and peribronchial soft tissue likely inflammatory 5. Prior granulomatous disease with a prominent hilar and mediastinal lymph nodes which are both calcified and noncalcified 6. Numerous calcified pulmonary nodules and several noncalcified pulmonary nodules. The largest of the noncalcified pulmonary nodules is in the inferior right upper lobe. Recommend follow-up chest CT in 3-6 months' time, depending on risk factors Laboratory Results WBC 8.05 10^3/uL (3.29-11.43) 07/13/24 10:48 RBC 4.27 10^6/uL (3.85-5.65) 07/13/24 10:48 Hgb 14.20 g/dL (11.27-16.99) 07/13/24 10:48 Hct 41.9 % (37-53) 07/13/24 10:48 MCV 98.1 fl (82-101) 07/13/24 10:48 MCH 33.3 pg (27-33) H 07/13/24 10:48 MCHC 33.9 g/dL (30-55) 07/13/24 10:48 RDW 13.4 % (12.1-15.1) 07/13/24 10:48 Plt Count 188 10^3/cmm (157-399) 07/13/24 10:48 MPV 9.3 fL (7.4-10.4) 07/13/24 10:48 Neut % (Auto) 83.7 % 07/13/24 10:48 Lymph % (Auto) 8.9 % 07/13/24 10:48 Rich % (Auto) 6.6 % 07/13/24 10:48 Eos % (Auto) 0.5 % 07/13/24 10:48 Baso % (Auto) 0.2 % 07/13/24 10:48 Neut # (Auto) 6.73 10^3/uL (1.8-7.7) 07/13/24 10:48 Lymph # (Auto) 0.7 10^3/uL (0.8-4.8) L 07/13/24 10:48 Rich # (Auto) 0.5 10^3/uL (0.2-0.9) 07/13/24 10:48 Eos # (Auto) 0.0 10^3/uL (0.0-0.8) 07/13/24 10:48 Baso # (Auto) 0.0 10^3/uL (0.0-0.1) 07/13/24 10:48 Nucleated RBC % (auto) 0 % 07/13/24 10:48 Nucleated RBCs # 0.0 /100WBC 07/13/24 10:48 D-Dimer 2.51 ug/mLFEU (0-0.59) H 07/13/24 10:48 Sodium 136 mmol/L (136-145) 07/13/24 10:48 Potassium 3.6 mmol/L (3.5-5.1) 07/13/24 10:48 Chloride 97 mmol/L (98-107) L 07/13/24 10:48 Carbon Dioxide 22 mmol/L (22-29) 07/13/24 10:48 Anion Gap 20.6 (5-19) H 07/13/24 10:48 BUN 9 mg/dL (8-23) 07/13/24 10:48 Creatinine 0.7 mg/dL (0.7-1.2) 07/13/24 10:48 GFR Calculation Not Reportable 07/13/24 10:48 Glucose 135 mg/dL (65-115) H 07/13/24 10:48 Calculated Osmolality 283 mOsm/kg (285-295) L 07/13/24 10:48 Calcium 8.9 mg/dL (8.5-10.5) 07/13/24 10:48 Total Bilirubin 0.8 mg/dL (0.15-1.2) 07/13/24 10:48 AST 22 U/L (0-40) 07/13/24 10:48 ALT 14 U/L (0-41) 07/13/24 10:48 Alkaline Phosphatase 86 U/L (40-130) 07/13/24 10:48 Troponin T Baseline 8 ng/L (0-15) 07/13/24 10:48 Troponin T 120 Minute 6.57 ng/L (0-15) 07/13/24 12:50 Delta Troponin T -1.43 ABS# (0-10) L 07/13/24 12:50 Total Protein 6.3 g/dL (6.6-8.7) L 07/13/24 10:48 Albumin 4.0 g/dL (3.5-5.2) 07/13/24 10:48 Globulin 2.3 g/dL (1.3-4.6) 07/13/24 10:48 All radiology interpretation(s) finalized by discharge Discharge Plan Discharge Patient Disposition: Home Clinical Impression: Non-cardiac chest pain Condition: Stable Prescriptions: No Action metoprolol succinate 50 mg tablet extended release 24 hr 50 mg PO DAILY amlodipine 10 mg tablet 10 mg PO DAILY pantoprazole 40 mg tablet,delayed release (DR/EC) 40 mg PO DAILY hydrocortisone 20 mg tablet See Rx Instructions .ROUTE .COMPLEX Rx Instructions: 20 mg orally in the morning / 10 mg orally in the evening lisinopril 40 mg tablet 40 mg PO DAILY PreserVision AREDS-2 250-90-40-1 mg capsule 1 tab PO BID potassium chloride 20 mEq tablet,ER particles/crystals 20 meq PO DAILY fludrocortisone 0.1 mg tablet 1 mg PO DAILY Discharge Orders: Discharge ED (Routine); Ordered 07/13/24 Ordered By: Rose Renner Referrals: Flash Valentino MD [Primary Care Provider] - Discharge Diet: Usual diet Discharge Activity: Increase activity as tolerated Patient Instructions: Noncardiac Chest Pain (ED), Opioid Safety, Pain Management Activity Restrictions/Additional Instructions: Thank you for choosing [facility] for your healthcare needs today. Please realize this is an emergency room and that we are providing you with a medical screening exam and this may not be complete and all inclusive of all the testing and or work up that you may need to determine your ailment or severity of your illness. You have been screened and evaluated and felt safe for discharge. Health conditions do change or evolve sometimes and as such it is important that you follow up with your Primary Doctor to be re checked, 3-5 days is a general good time frame for follow up. 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
[2024-07-13 10:59] LABS: Basophils % 0.2 %; Eosinophils % 0.5 %; Hematocrit 41.9 % (37-53); Lymphocytes # 0.7 10^3/uL (0.8-4.8); Lymphocytes % 8.9 %; Mean Corpuscular HGB Conc 33.9 g/dL (30-55); Mean Corpuscular Hemoglobin 33.3 pg (27-33); Mean Corpuscular Volume 98.1 fl (82-101); Mean Platelet Volume 9.3 fL (7.4-10.4); Monocytes # 0.5 10^3/uL (0.2-0.9); Monocytes % 6.6 %; Neutrophils # 6.73 10^3/uL (1.8-7.7); Neutrophils % 83.7 %; Nucleated Red Blood Cells % 0 %; Platelet Count 188 10^3/cmm (157-399); Red Blood Count 4.27 10^6/uL (3.85-5.65); Red Cell Distribution Width 13.4 % (12.1-15.1); White Blood Count 8.05 10^3/uL (3.29-11.43)
[2024-07-13 11:14] LABS: D Dimer 2.51 ug/mLFEU (0-0.59)
[2024-07-13 11:17] LABS: Troponin(5th) Baseline 8 ng/L (0-15)
[2024-07-13 11:33] LABS: Alanine Aminotransferase 14 U/L (0-41); Alkaline Phosphatase 86 U/L (40-130); Anion Gap 20.6 (5-19); Aspartate Amino Transferase 22 U/L (0-40); Blood Urea Nitrogen 9 mg/dL (8-23); Calcium 8.9 mg/dL (8.5-10.5); Carbon Dioxide 22 mmol/L (22-29); Chloride 97 mmol/L (98-107); Globulin 2.3 g/dL (1.3-4.6); Glucose 135 mg/dL (65-115); Osmolality Calculated 283 mOsm/kg (285-295); Potassium 3.6 mmol/L (3.5-5.1); Sodium 136 mmol/L (136-145); Total Bilirubin 0.8 mg/dL (0.15-1.2); Total Protein 6.3 g/dL (6.6-8.7)
--- NOTE | 2024-07-13 11:36 | CTR_ITS ---
PROCEDURE INFORMATION: Exam: CTA Chest With Contrast Exam date and time: 07/13/2024 12:30 PM Age: 83 years old Clinical indication: Abnormal findings; Abnormal diagnostic tests; Elevated d-dimer; Prior surgery; Surgery date: 6+ months; Surgery type: Gb, hernia; Patient HX: HX of melanoma; Additional info: Chest pain, elevated ddimer TECHNIQUE: Imaging protocol: Computed tomographic angiography of the chest with contrast. Exam focused on the arteries. 3D rendering (Not supervised by radiologist): MIP and/or 3D reconstructed images were created by the technologist. Radiation optimization: All CT scans at this facility use at least one of these dose optimization techniques: automated exposure control; mA and/or kV adjustment per patient size (includes targeted exams where dose is matched to clinical indication); or iterative reconstruction. Contrast material: OMNI 350; Contrast volume: 100 ml; Contrast route: INTRAVENOUS (IV); COMPARISON: CR XR chest 1V portable [id number] 07/13/2024 10:53 AM RADIATION DOSE METRICS: Total DLP (mGy-cm): 426.06 FINDINGS: Pulmonary arteries: There is no pulmonary embolus detected in the main pulmonary trunk. No pulmonary embolus is detected in the main right or left pulmonary artery. No pulmonary embolus is detected in the proximal 2nd or 3rd order branch vessels . Ability to evaluate for very peripheral pulmonary emboli is limited by artifact. . Aorta: There are atherosclerotic changes in the thoracic aorta . The aortic root is dilated measuring 4.5 x 4.7 cm. It tapers to more normal caliber in the arch . Negative for dissection Thyroid: The thyroid gland is unremarkable. Lungs: There are patchy infiltrates and atelectasis in the left upper lobe. There is atelectasis in both lower lobes. There are numerous calcified pulmonary nodules. In addition, there are several small noncalcified pulmonary nodules largest of these is located in the anterior inferior medial right upper lobe measured on series 6, image 225 7 mm. There is bronchial wall thickening particularly in the lower lobes. There are peribronchial opacities likely inflammatory. The adrenal glands are unremarkable. Pleural spaces: Unremarkable. No pneumothorax. No pleural effusion. Heart: Unremarkable. No cardiomegaly. No pericardial effusion. Lymph nodes: There is some narrowing proximal branch vessels due to adjacent hilar lymph nodes. There are prominent calcified and noncalcified mediastinal and hilar lymph nodes. Gallbladder and biliary ducts: Patient has undergone previous cholecystectomy. Bones/joints: Unremarkable. No acute fracture. Soft tissues: There is bilateral gynecomastia. CT/CT angio chest PE protcl [id number] IMPRESSION: 1. No pulmonary embolus detected though ability to evaluate for very peripheral pulmonary embolus is limited by artifact, particularly in the lower lobes. 2. Atherosclerotic disease aorta. Dilated aortic root. Negative for dissection 3. Patchy atelectasis and infiltrate left upper lobe. Bibasilar atelectasis. 4. Bronchial wall thickening particularly in the lower lobes and peribronchial soft tissue likely inflammatory 5. Prior granulomatous disease with a prominent hilar and mediastinal lymph nodes which are both calcified and noncalcified 6. Numerous calcified pulmonary nodules and several noncalcified pulmonary nodules. The largest of the noncalcified pulmonary nodules is in the inferior right upper lobe. Recommend follow-up chest CT in 3-6 months' time, depending on risk factors
[2024-07-13] MEDS: iohexol 350 mg/mL 500 mL Btl (per mL) IV (12:31)
[2024-07-13 13:18] LABS: Troponin 5 2HR 6.57 ng/L (0-15); Troponin 5 2HR Delta -1.43 ABS# (0-10)
== END 2024-07-13 13:51 | disposition home or self-care (01) ==
PROVIDERS: Emergency Provider Emergency Medicine; PCP Internal Medicine
DX: R07.89 Other chest pain (principal); Z85.820 Personal history of malignant melanoma of skin; I10 Essential (primary) hypertension
CPT/HCPCS: 36415; 71045; 71275; 80053; 84484; 85025; 85378; 93005; 99285

== ENCOUNTER → 2025-02-01 13:32 | Outpatient (BNVA) | payer MEDICARE, OTHER, SELFPAY | PROVIDERS: PCP Internal Medicine; Visit Provider Dermatology | DX: L82.1 Other seborrheic keratosis (principal); D18.01 Hemangioma of skin and subcutaneous tissue; L81.4 Other melanin hyperpigmentation; L57.8 Other skin changes due to chronic exposure to nonionizing radiation; Z85.828 Personal history of other malignant neoplasm of skin; Z08 Encounter for follow-up examination after completed treatment for malignant neoplasm; Z85.820 Personal history of malignant melanoma of skin; L82.0 Inflamed seborrheic keratosis; L53.8 Other specified erythematous conditions; R20.8 Other disturbances of skin sensation; L29.89 Other pruritus; D48.5 Neoplasm of uncertain behavior of skin; L57.0 Actinic keratosis | CPT/HCPCS: 11102; 17000; 17110; 69100; 99203 ==

== ENCOUNTER → 2025-03-06 09:48 | Outpatient (BNVA) | payer MEDICARE, OTHER, SELFPAY | PROVIDERS: PCP Internal Medicine; Visit Provider Dermatology | DX: C44.229 Squamous cell carcinoma of skin of left ear and external auricular canal (principal); L57.0 Actinic keratosis | CPT/HCPCS: 13152; 17000; 17311 ==

== ENCOUNTER → 2025-04-30 08:06 | Outpatient (BNVA) | payer MEDICARE, OTHER, SELFPAY | PROVIDERS: PCP Internal Medicine; Visit Provider Dermatology | DX: L57.0 Actinic keratosis (principal); L57.8 Other skin changes due to chronic exposure to nonionizing radiation; L82.1 Other seborrheic keratosis; D18.01 Hemangioma of skin and subcutaneous tissue; L81.4 Other melanin hyperpigmentation; Z85.828 Personal history of other malignant neoplasm of skin; Z08 Encounter for follow-up examination after completed treatment for malignant neoplasm; Z85.820 Personal history of malignant melanoma of skin; L82.0 Inflamed seborrheic keratosis; R20.8 Other disturbances of skin sensation; L53.8 Other specified erythematous conditions; D48.5 Neoplasm of uncertain behavior of skin | CPT/HCPCS: 11102; 17000; 17110; 99214 ==

== ENCOUNTER → 2025-05-16 07:48 | Outpatient (BNVA) | payer MEDICARE, OTHER, SELFPAY | PROVIDERS: PCP Internal Medicine; Visit Provider Dermatology | DX: M31.0 Hypersensitivity angiitis (principal); C44.42 Squamous cell carcinoma of skin of scalp and neck; L57.0 Actinic keratosis | CPT/HCPCS: 13121; 17000; 17311; 99214 ==

== ENCOUNTER 2025-05-30 09:50 | Outpatient (CLI) | payer MEDICARE, OTHER, SELFPAY ==
[2025-05-30 11:30] LABS: Glucose Urine UA Negative (Normal); Nitrate Urine Negative (Negative); Specific Gravity, Urine 1.011 (1.005-1.030)
[2025-05-30 11:47] LABS: Blood Urea Nitrogen 11 mg/dL (8-23)
[2025-05-30 12:00] LABS: Add Urine Microscopic? YES
[2025-05-30 12:10] LABS: Hepatitis B Surface Antigen Non-Reactive (Nonreactive)
== END 2025-05-30 09:51 | disposition home or self-care (01) ==
LOC: LAB 09:55
PROVIDERS: PCP Internal Medicine; Visit Provider Dermatology
DX: M31.0 Hypersensitivity angiitis (principal)
CPT/HCPCS: 36415; 81001; 82565; 84520; 85651; 86021; 86038; 86060; 86140; 86431; 86704; 86706; 86803; 87340

== ENCOUNTER → 2025-06-11 12:29 | Outpatient (BNVA) | payer MEDICARE, OTHER, SELFPAY | PROVIDERS: PCP Internal Medicine; Visit Provider Dermatology | DX: M31.0 Hypersensitivity angiitis (principal); Z08 Encounter for follow-up examination after completed treatment for malignant neoplasm; Z85.828 Personal history of other malignant neoplasm of skin | CPT/HCPCS: 99213 ==

== ENCOUNTER 2025-06-14 08:48 | Outpatient (CLI) | payer MEDICARE, OTHER, SELFPAY ==
[2025-06-14 09:53] LABS: Glucose Urine UA Negative (Normal); Nitrate Urine Negative (Negative); Specific Gravity, Urine 1.014 (1.005-1.030)
[2025-06-14 09:58] LABS: Add Urine Microscopic? YES
== END 2025-06-14 08:49 | disposition home or self-care (01) ==
LOC: LAB 08:51
PROVIDERS: PCP Internal Medicine; Visit Provider Dermatology
DX: M31.0 Hypersensitivity angiitis (principal)
CPT/HCPCS: 81001

== ENCOUNTER 2025-07-09 09:07 | Outpatient (CLI) | payer MEDICARE, OTHER, SELFPAY ==
[2025-07-09 10:26] LABS: Glucose Urine UA Negative (Normal); Nitrate Urine Negative (Negative); Specific Gravity, Urine 1.014 (1.005-1.030)
[2025-07-09 10:31] LABS: Add Urine Microscopic? YES
== END 2025-07-09 09:08 | disposition home or self-care (01) ==
PROVIDERS: PCP Internal Medicine; Visit Provider Dermatology
DX: R31.9 Hematuria, unspecified (principal)
CPT/HCPCS: 81001; 87086

== ENCOUNTER 2025-07-16 08:38 | Outpatient (CLI) | payer MEDICARE, OTHER, SELFPAY ==
[2025-07-16 10:31] LABS: Alanine Aminotransferase 15 U/L (0-41); Albumin Level 3.9 g/dL (3.5-5.2); Alkaline Phosphatase 103 U/L (40-130); Anion Gap 13.8 (5-19); Aspartate Amino Transferase 23 U/L (0-40); Blood Urea Nitrogen 10 mg/dL (8-23); Calcium 8.5 mg/dL (8.5-10.5); Carbon Dioxide 28 mmol/L (22-29); Chloride 101 mmol/L (98-107); Globulin 2.8 g/dL (1.3-4.6); Glucose 145 mg/dL (65-115); Osmolality Calculated 290 mOsm/kg (285-295); Potassium 3.8 mmol/L (3.5-5.1); Sodium 139 mmol/L (136-145); Total Protein 6.7 g/dL (6.6-8.7)
== END 2025-07-16 08:39 | disposition home or self-care (01) ==
PROVIDERS: PCP Internal Medicine; Visit Provider Dermatology
DX: M31.0 Hypersensitivity angiitis (principal)
CPT/HCPCS: 36415; 80053

== ENCOUNTER → 2025-07-30 08:14 | Outpatient (BNVA) | payer MEDICARE, OTHER, SELFPAY | PROVIDERS: PCP Internal Medicine; Visit Provider Dermatology | DX: M31.0 Hypersensitivity angiitis (principal); N39.0 Urinary tract infection, site not specified; D18.01 Hemangioma of skin and subcutaneous tissue; L82.1 Other seborrheic keratosis; Z85.828 Personal history of other malignant neoplasm of skin; Z08 Encounter for follow-up examination after completed treatment for malignant neoplasm; Z85.820 Personal history of malignant melanoma of skin; D48.5 Neoplasm of uncertain behavior of skin; L57.0 Actinic keratosis | CPT/HCPCS: 11102; 17000; 99214 ==